=== PATIENT | female | born 1930 | race Caucasian/White ===

== ENCOUNTER 2018-02-07 10:01 | Inpatient (IN) | payer MEDICARE, BC ==
[~2018-02-07] VITALS: Ht 165.1 cm; Wt 49.0 kg
[~2018-02-07 10:01] MED LIST: ALBUTEROL2.5 MG/0.5 INH; BROVANA15 MCG/2 M INH; CALCITRIOL0.25 MCG PO; COLACE100 MG PO; COREG25 MG PO; COZAAR 50 MG TA50 M2 PO; DEMADEX20 MG PO; LASIX 40 MG TAB40 M2 PO; MEGESTROL40 MG/1 M1 PO; MIRALAX17 GM PO; NORVASC10 MG PO; PREDNISONE 10 M10 MG PO; SODIUM BICARB PO; SODIUM BICARBO650 M3 PO; SPRYCEL100 MG PO; TOPAMAX 25 MG T25 M1 PO; TOPROL XL25 MG PO; TOPROL XL50 MG PO; TRAMADOL 50 MG50 MG PO; TYLENOL EXTRA500 MG PO; TYLENOL PM EX-1 EACH PO; UNITHROID50 MCG PO; VALTREX1000 MG PO
[2018-02-07 10:06] VITALS: BP 195/59
[2018-02-07] MEDS ORDERED: LASIX 20 MG TAB20 MG PO (10:13)
[2018-02-07] MEDS ORDERED: FLECAINIDE ACET50 M1 PO (10:14)
[2018-02-07] MEDS ORDERED: ASPIR 8181 MG PO (10:14)
[2018-02-07 10:57] LABS: NUCLEATED RBCS 0 /100WBC; RDW-CV 14.6 % (10.5-14.5)
[2018-02-07 11:02] LABS: ABSOLUTE BASOPHILS 0.2 thou/uL (0.0-0.2); ABSOLUTE EOSINOPHILS 0.2 thou/uL (0.0-0.7); ABSOLUTE LYMPHOCYTES 1.4 thou/uL (0.8-5.3); ABSOLUTE MONOCYTES 0.6 thou/uL (0.0-1.2); ABSOLUTE NEUTROPHILS 8.8 thou/uL (1.6-8.1); BASOPHILS 1.3 %; EOSINOPHILS 2.2 %; HEMOGLOBIN 12.4 gm/dL (12.0-15.0); LYMPHOCYTES 12.7 %; MCH 30.5 pg (26.0-34.0); MCHC 32.5 g/dL (28.0-37.0); MCV 93.8 fL (80.0-100.0); MONOCYTES 5.7 %; PLATELET COUNT* 255 thou/uL (150-400); POLYS 78.1 %; RBC 4.05 mil/uL (4.20-5.00); WBC 11.3 thou/uL (4.0-11.0)
[2018-02-07 11:15] LABS: ANION GAP 14 mmol/L (7-16); BUN 25 mg/dL (7-18); CALCIUM 9.1 mg/dL (8.5-10.1); CHLORIDE 109 mmol/L (98-107); CO2 20 mmol/L (21-32); CREATININE 2.3 mg/dL (0.6-1.3); GLUCOSE 105 mg/dL (70-99); POTASSIUM 4.3 mmol/L (3.5-5.1); SODIUM 143 mmol/L (136-145)
[2018-02-07 11:24] LABS: ALBUMIN 3.6 g/dL (3.4-5.0); ALKALINE PHOSPHATASE 89 U/L (46-116); NT-PRO BRAIN NAT PEPTIDE 4413 pg/mL (<300); SGOT 18 U/L (15-37); SGPT 15 U/L (30-65); TOTAL BILIRUBIN 0.4 mg/dL (<0.1-1.0); TOTAL PROTEIN 7.8 g/dL (6.4-8.2); TROPONIN-I LEVEL <0.06 ng/mL (<0.06)
[2018-02-07 11:36] LABS: APTT 28.5 Seconds (25.0-31.3); INR 1.1; PROTIME 10.5 Seconds (9.20-11.50)
[2018-02-07 12:25] VITALS: BP 173/54
[2018-02-07 12:30] VITALS: BP 189/60
--- NOTE | 2018-02-07 14:04 | NUR ---
PT ORIENTED TO ROOM AND UNIT. REMAINS ON 4L NC. AWAITING DR. JACKSON TO ASSESS.
--- NOTE | 2018-02-07 15:13 | NUR ---
WHEN REVCIEVING REPORT ON PATIENT AROUND 1145 TODAY I WAS INFORMED BY SIGNAL INTELLIGENCE ANALYSTTRAN CHOWDHURY THAT PT HAD RECIEVED VQ SCAN TO R/O PE HOWEVER UPON FURTHER INVESTIGATION NUC MED TECH WAS NOT CALLED IN AND VQ SCAN WAS NOT COMPLETED. INSTRUCTED BY DR. EDWARDS TO CALL IN NUC MED TECH AND HAVE TEST COMPLETED STAT. PT REMAINS ON 4LNC.
[2018-02-07 16:00] VITALS: BP 174/56
--- NOTE | 2018-02-07 16:41 | NUR ---
PT OFF UNIT TO NUC MED.
--- NOTE | 2018-02-07 17:42 | NUR ---
PT RETURN TO UNIT.
[2018-02-07 18:55] LABS: HEMATOCRIT 37.3 % (37.0-47.0); HEMOGLOBIN 12.1 gm/dL (12.0-15.0); MCH 30.7 pg (26.0-34.0); MCHC 32.6 g/dL (28.0-37.0); MCV 94.1 fL (80.0-100.0); MPV 8.9 fl. (7.2-11.1); RBC 3.96 mil/uL (4.20-5.00); RDW-CV 14.5 % (10.5-14.5); WBC 12.6 thou/uL (4.0-11.0)
--- NOTE | 2018-02-07 18:56 | NUR ---
PT RESTING COMFORTABLY IN BED. VQ SCAN WAS NEGATIVE.
[2018-02-07 20:00] VITALS: BP 173/52
[2018-02-08] VITALS (7 sets, daily range): BP systolic 149–173; BP diastolic 51–105
--- NOTE | 2018-02-08 02:26 | NUR ---
PT ALERT ORIENTED. UP TO BSC WITH ONE PERSON ASSIST. TELMETRY SHOWS SR. O2 AT 4 LITERS NC. WILL CONTINUE TO MONITOR.
[2018-02-08 04:28] LABS: HEMOGLOBIN 11.2 gm/dL (12.0-15.0); MCH 30.8 pg (26.0-34.0); MCV 93.4 fL (80.0-100.0); MPV 9.2 fl. (7.2-11.1); RBC 3.64 mil/uL (4.20-5.00); RDW-CV 14.7 % (10.5-14.5); WBC 11.1 thou/uL (4.0-11.0)
[2018-02-08 04:34] LABS: CALCIUM 8.5 mg/dL (8.5-10.1); CREATININE 2.5 mg/dL (0.6-1.3); POTASSIUM 3.9 mmol/L (3.5-5.1)
--- NOTE | 2018-02-08 10:57 | NUR ---
PT OFF UNIT TO CT.
--- NOTE | 2018-02-08 11:52 | NUR ---
PT RETURN TO UNIT AT 1110
--- NOTE | 2018-02-08 12:03 | NUR ---
PT OFF UNIT TO U/S.
--- NOTE | 2018-02-08 13:22 | EKG ---
[place] [address] ELECTROCARDIOGRAM REPORT Name: ALFONSO WELLS Room: [address] ADM IN M.R.#: [id number] Admission: 02/07/18 Attend Phys: Demarcus Lentz, Discharge: Date of : [birth year] Report #: [id number] THIS REPORT FOR: //name// [facility] ED Test Date: 2018-02-07 Test Time: 10:21:31 Pat Name: ALFONSO WELLS Department: Room: [address] Gender: F Medical Equipment Sales: Julius MOON : 1930 Requested By: Demarcus Lentz Order Number: [id number] Sriram MD: Wilton Sigala Measurements Intervals [place] Rate: 69 P: 36 TN: 173 QRS: 45 QRSD: 90 T: 71 QT: 401 QTc: 430 Interpretive Statements Sinus rhythm Borderline low voltage, extremity leads Compared to ECG 04/02/2016 18:31:05 No significant changes Electronically Signed On 02-08-2018 13:22:00 CDT by Wilton Sigala [email or web address] <ELECTRONICALLY SIGNED> By: Wilton Sigala MD, [facility] 02/08/18 1322 1021 1021 Wilton Sigala MD, [facility] /EPI
--- NOTE | 2018-02-08 13:25 | EKG ---
[place] [address] ELECTROCARDIOGRAM REPORT Name: ALFONSO WELLS Room: [address] IN [facility].#: [id number] Admission: 02/07/18 Attend Phys: Demarcus Lentz, Discharge: Date of : [birth year] Report #: [id number] THIS REPORT FOR: //name// [facility] Test Date: 2018-02-07 Test Time: 16:16:15 Pat Name: ALFONSO WELLS Department: Room: Gender: F Public Safety Director: : 1930 Requested By: Kelley Cuba Order Number: [id number] MD: Wilton Sigala Measurements Intervals [place] Rate: 79 P: 50 SD: 173 QRS: 35 QRSD: 103 T: 65 QT: 399 QTc: 458 Interpretive Statements Sinus rhythm Borderline low voltage, extremity leads Nonspecific ST segment depression Compared to ECG 04/02/2016 18:31:05 No significant changes Electronically Signed On 02-08-2018 13:24:58 CDT by Wilton Sigala [email or web address] <ELECTRONICALLY SIGNED> By: Wilton Sigala MD, [facility] 02/08/18 1324 1616 15 Wliton Sigala MD, [facility] /EPI
[2018-02-08 18:10] LABS: URINE BILIRUBIN NEGATIVE (Negative); URINE BLOOD TRACE (Negative); URINE CLARITY CLEAR; URINE COLOR YELLOW; URINE GLUCOSE-RANDOM NEGATIVE (Negative); URINE KETONES NEGATIVE (Negative); URINE LEUKOCYTES-REFLEX NEGATIVE (Negative); URINE NITRITE-REFLEX NEGATIVE (Negative); URINE PROTEIN 2+ (Negative); URINE UROBILINOGEN 0.2 E.U./dl (0.2-1.0)
[2018-02-08 18:37] LABS: CRYSTALS None Seen /LPF (None Seen); FINE GRANULAR CASTS 0-3 Few /LPF (None Seen); HYALINE CASTS 0-3 Few /LPF (None Seen); MUCUS 0-3 Light strn/LPF (None Seen); SQUAMOUS 4-10 Moderate /LPF (0-3); URINE RBC 0-2 Rare /HPF (0-2); URINE WBC-REFLEX 0-5 Rare /HPF (0-5)
[2018-02-08 18:39] LABS: BACTERIA-REFLEX 1-9 Few /HPF (None Seen)
--- NOTE | 2018-02-08 19:19 | NUR ---
NATALEE REPORT GIVEN TO REECE MAYFIELD
--- NOTE | 2018-02-08 20:00 | NUR ---
RECIEVED REPORT AND ASSUMED CARE OF PATIENT AT 1930. NAIL FEEDER IN PLACE TRACING SR. ASSESSMENT AND VITALS COMPLETED CHARTED, VSS. PATIENT A&OX4. NO C/O PAIN OR DISCOMFORT. PATIENT ON 3L O2 NC WITH SATS >92%. NO RESPIRATORY DISTRESS NOTED. PATIENT RESTING COMFORTABLY WITH FAMILY AT BEDSIDE. GOAL IS TO MAINTAIN O2 SATURATION >92% ON 3L NC WITH NO RESPIRATORY DISTRESS. CALL LIGHT WITHIN REACH
[2018-02-09 03:53] VITALS: BP 163/58
--- NOTE | 2018-02-09 05:19 | NUR ---
PATIENT PROGRESSING TOWARDS GOALS: O2 SATURATION MAINTAINED >92% ON 3L O2 NC WITH NO RESPIRATORY DISTRESS NOTED. PATIENT HAS C/O HEADACHE WITH RELIEF FROM ACETAMINOPHEN. HOURLY ROUNDING OBSERVED. CALL LIGHT WITHIN REACH
[2018-02-09 05:41] LABS: HEMATOCRIT 34.6 % (37.0-47.0); HEMOGLOBIN 11.4 gm/dL (12.0-15.0); MCH 30.9 pg (26.0-34.0); MCHC 32.9 g/dL (28.0-37.0); MPV 9.1 fl. (7.2-11.1); RBC 3.69 mil/uL (4.20-5.00); WBC 11.8 thou/uL (4.0-11.0)
[2018-02-09 05:58] LABS: CREATININE 3.1 mg/dL (0.6-1.3); MAGNESIUM 2.5 mg/dL (1.8-2.4); POTASSIUM 4.5 mmol/L (3.5-5.1)
[2018-02-09 07:54] VITALS: BP 151/59
--- NOTE | 2018-02-09 07:54 | CON ---
[address] [address] CONSULTATION Name: ALFONSO WELLS Room: [address] IN .R.#: [id number] Admission: 02/07/18 Attend Phys: Demarcus Lentz, Discharge: Date of : [birth year] Report #: [id number] THIS REPORT FOR: //name// CC: Epi Lentz DATE OF SERVICE: 02/08/2018 CONSULT REQUESTED BY: Dr. Lentz. INDICATION FOR CONSULTATION: Shortness of breath. HISTORY OF PRESENT ILLNESS: This is an 87-year-old female. I have seen her previously in the office. I do not have my office notes available at this time; therefore, this description is from recollection from memory. I recall seeing her a couple of years ago. The patient has a history of chronic renal failure. The patient at one time was considered for hemodialysis, which she had declined. Eventually her creatinine stabilized to around 1.5-1.7. The patient is followed by Dr. Coyne. The patient has also had colon cancer and also in addition has had chronic myelogenous leukemia. The patient previously had pleural effusions bilaterally, which were transudative on thoracentesis. The patient at one point had bilateral PleurX catheters placed, which were ordered by Dr. Vieyra. Eventually the patient did not want these PleurX catheters as well and therefore I recall requesting them to be removed. It was not firmly established at that time as to whether the pleural effusions were related to her renal failure, her malignancy or chemotherapy received. Regardless, the patient did overall do well in addition to her renal function stabilizing, her pleural effusions were also slow to recur. I do not recall the patient coming back to our office to see us in the recent past. She does have a remote history of smoking as well. She states that she has not smoked for more than 30 years. She, in addition, has had paroxysmal atrial fibrillation. The patient has not been on long-term anticoagulation. The patient is also not on oxygen long-term. The patient is now admitted yesterday, presentation is with shortness of breath. The patient has had increasing shortness of breath for the past week. The patient was seen by primary care physician within the last week and was found to be in atrial fibrillation again. Note that the patient has had paroxysmal atrial fibrillation in the past as well. She initially reported that it was difficult for her to lay flat. She had some vague chest discomfort, but no chest pain. There is mild increase in cough. There is no sputum production. She does not have upper respiratory complaints. There is no swelling of lower extremities. There is no calf pain. There are no abdominal complaints. She does [place] [address] CONSULTATION Name: RUSSELLALFONSO Room: [address] IN .R.#: [id number] Admission: 02/07/18 Attend Phys: Demarcus Lentz, Discharge: Date of : [birth year] Report #: [id number] Upon arrival, the patient was treated with Lasix. She was also anticoagulated with Lovenox. In addition, she was started on Levaquin. At this time she reports improvement in her shortness of breath. She is only on 1 liter nasal cannula. She does not appear to be in any respiratory distress at this time. I performed a 12-point review of systems, the patient's review of systems is negative except as mentioned above. PAST MEDICAL HISTORY: Chronic renal failure, followed by Dr. Coyne, baseline creatinine in fact eventually improved to around 1.5-1.7; colon cancer, chronic myelogenous leukemia, previously followed by Dr. Vieyra; recurrent transudative pleural effusion, previous history of PleurX catheter placement, which have now been removed as mentioned above; paroxysmal atrial fibrillation, not on long-term anticoagulation. The last available echocardiogram is from 2014 and shows a left ventricular ejection fraction of 60-65%. The pulmonary artery systolic on this echo was elevated to 53. The patient has a previous history of recurrent DVTs according to Dr. Vieyra's notes, I do not have details available. As mentioned above, the patient was not known to be on anticoagulation prior to this admission. Acute pancreatitis, gastroesophageal reflux disease, bilateral cataracts, hysterectomy, colon surgery, appendectomy, cholecystectomy, tonsillectomy. SOCIAL HISTORY: The patient says that she used to smoke, but was never a heavy smoker, discontinued 30 or more years ago. I am unable to quantify exactly at this time. No known history of heavy alcohol use or illegal drug use. ALLERGIES: THE PATIENT REPORTS AN ALLERGY TO PENICILLIN AND SULFA DRUGS. CURRENT MEDICATIONS: List in [facility] reviewed. HOME MEDICATIONS: List also in [employer] reviewed. FAMILY HISTORY: There is no pertinent family history. PHYSICAL EXAMINATION: GENERAL: She is alert, awake and oriented, does not appear to be short of breath at rest. VITAL SIGNS: She has a pulse of 89 and a blood pressure of 158/70. She has been saturating in the mid 90s. Her oxygen is via nasal cannula. She is being titrated and she has ranged from 1-4 liters. Her respiratory rate was around 14-16 at the time of my examination. She has been afebrile, last temperature is 37.1. HEENT: Head is normocephalic and atraumatic. Pupils are equal and reactive. There is no throat erythema. NECK: Does not show raised JVP, asymmetry, mass or lymph nodes. CHEST: Symmetrical expansion on inspection and palpation. On auscultation, breath sounds are bilaterally equal. Breath sounds are significantly decreased [address] [address] CONSULTATION Name: ALFONSO WELLS Room: [address] IN [facility]#: [id number] Admission: 02/07/18 Attend Phys: Demarcus Lentz, Discharge: Date of : 04/27/[birth year] Report #: [id number] at bilateral lung bases. HEART: Irregular. There is a minimal systolic murmur. ABDOMEN: Soft and nontender. EXTREMITIES: Lower extremities show no edema and no calf tenderness. SKIN: Dry and intact. NEUROLOGICAL: Moves all extremities bilaterally equally and spontaneously with no focal deficit identified. LABORATORY DATA: The patient's chest x-ray is reviewed and compared with the patient's previous chest x-rays there is a recurrence of pleural effusions at bilateral lung bases. There are bilateral basilar infiltrates noted as well. I do not see any definite increase in pulmonary vascular congestion. The patient's chemistries do show a creatinine elevating to 2.5 today. Note that the patient's baseline creatinine is 1.5-1.7. Rest of the chemistries in [facility] reviewed. CBC in [facility] also reviewed. D-dimer was elevated to 0.88. ASSESSMENT AND PLAN: 1. Acute respiratory insufficiency/shortness of breath. The patient has had recurrence of previously known pleural effusions. There are also bilateral infiltrates present. These appear to be the etiology of the patient's acute respiratory insufficiency. Note that the patient's creatinine is elevated above her baseline. 2. Bilateral pleural effusions. See discussion above. At one point in the past the patient has had PleurX catheters. These pleural effusions had subsequently, however, not recurred. At this time, considering that the patient is in no respiratory distress and has a significant elevation in creatinine beyond her baseline, I decided to discontinue her diuretic. I will also discontinue her Lovenox for now and we will proceed with a CT chest without contrast. If significant pleural effusions are seen, then I would favor proceeding with thoracentesis. 3. Pulmonary infiltrates. Bilateral basilar pulmonary infiltrates are noted. The patient currently is on Levaquin 500 mg IV daily. I requested pharmacy to check the dose. Note that the patient is in acute on chronic renal failure. I will, however, be continuing with Levaquin. 4. Acute on chronic renal failure. The patient states that she strongly prefers that we consult Nephrology. Per the patient's request, I proceeded to consulting Nephrology. 5. Possible bronchospasm. The patient may have underlying chronic obstructive pulmonary disease. I do not have my office notes available at this time. For now, I did go ahead and start Solu-Medrol as well as nebulized bronchodilators pending review tomorrow morning. 6. Paroxysmal atrial fibrillation. The patient is on full dose Lovenox. Considering the thoracentesis is a consideration, I discontinued Lovenox for now. If thoracentesis is not performed or after the procedure is performed, if indicated anticoagulation could be restarted; however, recommend adjusting dose [address] [address] CONSULTATION Name: ALFONSO WELLS Room: [address] IN .R.#: [id number] Admission: 02/07/18 Attend Phys: Demarcus Lentz, Discharge: Date of : 04/27/[birth year] Report #: [id number] for renal function. 7. Past medical history of deep venous thrombosis. We will go ahead and repeat venous Dopplers as well. Note that the patient's V/Q scan is unremarkable. 8. Past medical history of chronic myelogenous leukemia. 9. Past medical history of colon cancer. Thanks for this consultation. <ELECTRONICALLY SIGNED> By: Hanane Elmore MD 02/09/18 0754 1106 [id number] Urban MD /alyse
--- NOTE | 2018-02-09 11:50 | NUR ---
MET WITH PT TO DISCUSS HOME SITUATION/DC PLANING. PT LIVES ALONE. STATES HER DTR/FELICIANO STAYS WITH HER SOME. FELICIANO HAS CANCER AND PT STATES THEY SUPPORT EACH OTHER. PT IS FAIRLY INDEPENDENT. IS ABLE TO COOK, CLEAN AND DO OWN ADLS. SHE HAS WALKER BUT DOESN'T USE IT. ALSO SHOWER BENCH AND NEBULIZER. GRAB BARS ON HER STAIRS. PT HAS HAD HH IN THE PAST, NOT BEEN TO SNF. DENIES ANY CURRENT DC NEEDS. PT PLANS TO RETURN [facility]. SHE DOESN'T WEAR HOME O2. WILL FOLLOW
[2018-02-09 11:57] VITALS: BP 150/46
--- NOTE | 2018-02-09 12:44 | NUR ---
ASSESSMENT COMPLETED REFER TO COMPUTER CHARTING. SHIRT FINISHER TRACKING SR. RESTING IN BED REPORTING NO PAIN, NAUSEA OR SHORTNESS OF BREATH. BED IN LOW AND LOCKED POSITION. CALL LIGHT WITHIN REACH. IV SALINE LOCKED. ON O2 AT 3 LITERS VIA NASAL CANNULA. WILL CONTINUE TO MONITOR THIS SHIFT.
--- NOTE | 2018-02-09 15:12 | 2DMMODE ---
[place] [address] 2 D/M-MODE ECHOCARDIOGRAM Name: ALFONSO WELLS Room: [address] IN .R.#: [id number] Admission: 02/07/18 Attend Phys: Demarcus Aleman Discharge: Date of : [birth year]27/[birth year] Date of Service: 02/09/18 1511 Report #: [id number] THIS REPORT FOR: //name// APPROVED REPORT Study performed: 02/09/2018 10:38:05 EXAM: Comprehensive 2D, Doppler, and color-flow Echocardiogram Patient Location: Bedside BSA: 1.57 HR: 83 bpm BP: 151/59 mmHg Other Information Study Quality: Good Indications Congestive Heart Failure Pleural Effusion 2D Dimensions LVEF(%): 70.01 (>50%) IVSd: 10.85 (7-11mm) LVOT Diam: 22.53 (18-24mm) LVDd: 42.04 mm PWd: 8.67 (7-11mm) Ascending Ao: 28.74 (22-36mm) LVDs: 25.57 (25-40mm) Aortic Root: 26.76 mm Marie's LVEF: 70.01 % Volumes Left Atrial Volume (Systole) LA ESV Index: 42.10 mL/m2 Aortic Valve AoV Peak Shaggy.: 1.18 m/s AO Peak Gr.: 5.56 mmHg LVOT Max P.00 mmHg AO Mean Gr.: 3.80 mmHg LVOT Mean P.09 mmHg LVOT Max V: 0.71 m/s AO V2 VTI: 27.68 cm LVOT Mean V: 0.49 m/s ALEXSANDRA (VTI): 2.71 cm2 LVOT V1 VTI: 18.82 cm Mitral Valve E/A Ratio: 1.44 MV Decel. Time: 161.61 [place] [address] 2 D/M-MODE ECHOCARDIOGRAM Name: ALFONSO WELLS Room: [address] IN [facility].#: [id number] Admission: 02/07/18 Attend Phys: Demarcus Aleman Discharge: Date of : 04/27/[birth year] Date of Service: 02/09/18 1511 Report #: [id number] MV E Max Shaggy.: 1.22 m/s MV PHT: 46.87 ms MVA (PHT): 4.69 cm2 TDI E/Lateral E': 12.20 E/Medial E': 12.20 Medial E' Shaggy.: 0.10 m/s Lateral E' Shaggy.: 0.10 m/s Pulmonary Valve PV Peak Shaggy.: 0.70 m/s PV Peak Gr.: 1.93 mmHg Tricuspid Valve RAP Estimate: 10.00 mmHg TR Peak Gr.: 45.96 mmHg RVSP: 55.96 mmHg PA Pressure: 55.96 mmHg Left Ventricle The left ventricle is normal size. There is normal LV segmental wall motion. There is normal left ventricular wall thickness. Left ventricular systolic function is normal. The left ventricular ejection fraction is within the normal range. LVEF is 60-65%. The left ventricular diastolic function is normal. Right Ventricle The right ventricle is normal size. The right ventricular systolic function is normal. Atria Left atrium is moderately dilated. The right atrium size is normal. Aortic Valve Aortic valve is calcified. Mild aortic regurgitation. There is no aortic valvular stenosis. Mitral Valve There is mitral annular calcification. Mitral valve leaflets are calcified. Mild to moderate mitral regurgitation. No evidence of mitral valve stenosis. Tricuspid Valve The tricuspid valve is normal in structure. Trace tricuspid regurgitation. estimated pa pressure 50 [place] [address] 2 D/M-MODE ECHOCARDIOGRAM Name: ALFONSO WELLS Room: [address]#: [id number] Admission: 02/07/18 Attend Phys: Demarcus Aleman Discharge: Date of : 04/27/[birth year] Date of Service: 02/09/18 1511 Report #: [id number] The pulmonary valve is normal in structure. Trace pulmonic regurgitation. Great Vessels The aortic root is normal in size. The IVC is dilated. Pericardium There is no pericardial effusion. Pleural effusion. <Conclusion> Left ventricular systolic function is normal. The left ventricular ejection fraction is within the normal range. Left atrium is moderately dilated. Aortic valve is calcified. Mild aortic regurgitation. Mild to moderate mitral regurgitation. Trace tricuspid regurgitation. estimated pa pressure 50 mm Hg Pleural effusion. <ELECTRONICALLY SIGNED> By: Nickolas Waters MD, FACC 02/09/18 151 10 10 Nickolas Waters MD, FACC /INF
[2018-02-09 16:00] VITALS: BP 162/54
[2018-02-09 20:00] VITALS: BP 166/64
--- NOTE | 2018-02-09 22:25 | NUR ---
RECIEVED REPORT AND ASSUMED CARE OF PATIENT AT 1930. DEMOLITION EXPERT IN PLACE TRACING SR. ASSESSMENT AND VITALS COMPLETED CHARTED, VSS. PATIENT A&OX4. PATIENT HAD C/O SLIGHT PAIN IN HEAD AND EXPRESSING CONCERN ABOUT NOT BEING ABLE TO SLEEP. ORDERS RECIEVED AND ADMINISTERED PER DEC. PATIENT RESTING COMFORTABLY AT THIS TIME. GOAL IS FOR O2 SATURATION TO REMAIN WNL ON 3L NC AND TITRATE TO KEEP >92%. CALL LIGHT WITHIN REACH
[2018-02-09 23:41] VITALS: BP 149/51
[2018-02-10 03:42] VITALS: BP 157/55
--- NOTE | 2018-02-10 04:09 | NUR ---
PATIENT PARTIALLY PROGRESSING TOWARDS GOALS: O2 UNABLE TO BE TITRATED DOWN THIS SHIFT. PATIENT REMAINS ON 3L O2 WITH SATURATION WNL. PATIENT HAS RESTED COMFORTABLY THIS SHIFT WITH NO FURTHER C/O PAIN OR DISCOMFORT. HOURLY ROUNDING OBSERVED. CALL LIGHT WITHIN REACH
[2018-02-10 04:43] LABS: HEMATOCRIT 33.6 % (37.0-47.0); HEMOGLOBIN 10.9 gm/dL (12.0-15.0); MCH 30.5 pg (26.0-34.0); MCHC 32.3 g/dL (28.0-37.0); MCV 94.3 fL (80.0-100.0); RBC 3.56 mil/uL (4.20-5.00); RDW-CV 15.2 % (10.5-14.5); WBC 20.5 thou/uL (4.0-11.0)
[2018-02-10 04:58] LABS: ALBUMIN 3.1 g/dL (3.4-5.0); CALCIUM 8.6 mg/dL (8.5-10.1); CREATININE 3.4 mg/dL (0.6-1.3); MAGNESIUM 2.5 mg/dL (1.8-2.4); POTASSIUM 4.2 mmol/L (3.5-5.1); TOTAL BILIRUBIN 0.3 mg/dL (<0.1-1.0); TOTAL PROTEIN 6.9 g/dL (6.4-8.2)
[2018-02-10 08:30] VITALS: BP 156/68
--- NOTE | 2018-02-10 11:46 | NUR ---
ASSUMED CARE OF PT AT 0730. PT RESTING IN BED WAITING FOR BREAKFAST. PT A&0X4, VERY PLEASANT. PT DENIES ANY PAIN OR SHORTNESS OF BREATH AT THIS TIME. PT TRACING SR ON THE CORRUGATED SHEET MATERIAL SHEETER. ON 3L NC SAT 93%. PT DOES NOT WEAR ANY OXYGEN AT HOME. PT HAS PRODUCTIVE COUGH WITH CLEAR SPUTUM PER PT. PT IS ON STRICT I/O. PT UP SBA TO BATHROOM. CR CONTINUES TO RISE- PT DOES NOT WANT TO DO ANY AGGRESSIVE MEASURES, INCLUDING DIALYSIS. PT GOAL FOR TODAY IS TO INCREASE ACTIVITY, MONITOR WBC, TAPER STEROIDS, TITRATE OXYGEN POSSIBLE. AM ASSESSMENT CHARTED. MEDICATIONS PER DEC. PT REPOSITIONS SELF. HOURLY ROUNDING OBSERVED. BED IN LOW POSITION. CALL LIGHT WITHIN REACH. WILL CONTINUE PLAN OF CARE.
[2018-02-10 12:41] VITALS: BP 136/46
--- NOTE | 2018-02-10 14:05 | NUR ---
PT UP IN CHAIR, STATES DOING BETTER TODAY. PT DENIES ANY CONCERNS TODAY. STILL PLANS TO RETURN HOME AT MD. WILL FOLLOW
--- NOTE | 2018-02-10 17:06 | NUR ---
NO ACUTE CHANGES THROUGHOUT SHIFT. REFER TO CHARTING. CR CONTINUES TO RISE-3.4 TODAY. NEPHROLOGY HERE TO SEE PT. ORDERS RECEIVED FOR ONE TIME DOSE OF SMALL AMOUNT OF FLUID-250 ML INFUSED OVER 5 HOURS AT 50 ML/HR. PT OXYGEN TITRATED TO 2L NC SAT UPPER 90'S. DENIES ANY SHORTNESS OF BREATH AT REST. PT UP WITH 1 SBA TO BATHROOM. VISITORS AT BEDSIDE THIS AFTERNOON. PT. PT CONTINUES TO TRACE SR ON THE OPTOELECTRONIC TECHNICIAN. PT WEARS SCD'S WHILE IN BED. PT HAD BOWEL MOVEMENT TODAY. STRICT I/O IN PLACE. PT TO HAVE REPEAT CXR IN AM 5/2, POSSIBLE TAP IF INCREASE IN EFFUSIONS. PT DENIES ANY PAIN THROUGHOUT SHIFT. MEDICATIONS PER DEC. PT REPOSITIONS SELF. HOURLY ROUNDING OBSERVED. BED IN LOW POSITION. BED ALARM IN PLACE. FALL PRECAUTIONS IN PLACE. CALL LIGHT WITHIN REACH. WILL CONTINUE PLAN OF CARE.
[2018-02-10 17:12] VITALS: BP 148/45
[2018-02-10 20:00] VITALS: BP 159/50
[2018-02-10 23:54] VITALS: BP 151/37
--- NOTE | 2018-02-11 03:12 | NUR ---
PATIENT RESTED IN BED. NO ACUTE CHANGES, PATIENT DID NOT SHOW SIGNS OF DISTRESS. PATIENT DID NOT COMPLAIN OF SOB. PATIENT TO RECIEVE CHEST X-RAY LATER TODAY. FALL PRECAUTIONS IN PLACE, CALL LIGHT WITHIN REACH, HOURLY ROUNDING OBSERVED.
[2018-02-11 04:00] VITALS: BP 151/55
[2018-02-11 04:50] LABS: HEMATOCRIT 32.7 % (37.0-47.0); HEMOGLOBIN 10.8 gm/dL (12.0-15.0); MPV 9.4 fl. (7.2-11.1); RBC 3.48 mil/uL (4.20-5.00); WBC 12.9 thou/uL (4.0-11.0)
[2018-02-11 05:07] LABS: CALCIUM 8.5 mg/dL (8.5-10.1); CREATININE 3.4 mg/dL (0.6-1.3); PHOSPHORUS* 5.2 mg/dL (2.5-4.9); POTASSIUM 4.6 mmol/L (3.5-5.1)
[2018-02-11 08:00] VITALS: BP 160/49
[2018-02-11 11:22] VITALS: BP 151/42
--- NOTE | 2018-02-11 11:37 | NUR ---
CONTINUE TO FOLLOW, MET WITH PT AND DTR FELICIANO. ALSO DISCUSSED WITH DR SMITH, HE STATED HE DISCUSSED POSSIBLE HOSPICE WITH PT YESTERDAY AN OPTION SHE DOESN'T WANT DIALYSIS OR VENT PER THEIR DISCUSSION. I DID CONFIRM THAT WITH HER TODAY. TALKED WITH PT ABOUT OPTIONS OF PALLIATIVE CARE AND HOSPICE. SHE WOULD LIKE TO CONSIDER OPTONS. GAVE HER PAMPHLET INFO ON PALLIATIVE CARE. WILL FOLLOW
--- NOTE | 2018-02-11 14:22 | NUR ---
ASSUMED PT CARE AT 0730, FULL ASSESMENT DONE CHARTED. PT A/O X4, DENIES PAIN, WANTS TO GET BETTER AND GO HOME. PTS VSS, SR/1ST AVB ON THE MONITOR. FALL PRECATUIONS IN PLACE. PT USING CALL LIGHT APPROPRIALTY. WILL CONTINUE WITH PLAN OF CARE.
[2018-02-11 15:19] VITALS: BP 136/37
--- NOTE | 2018-02-11 16:17 | CON ---
[address] [address] CONSULTATION Name: ALFONSO WELLS Room: [address] IN M.R.#: [id number] Admission: 02/07/18 Attend Phys: Demarcus Lentz, Discharge: Date of : [birth year] Report #: [id number] THIS REPORT FOR: //name// CC: Epi Lentz CONSULTING PHYSICIAN: Demarcus Lentz MD. REASON FOR CONSULTATION: Acute kidney injury. HISTORY OF PRESENT ILLNESS: The patient is an 87-year-old female who was admitted 02/07/2018 with shortness of breath, which had been ongoing for about a week. She has underlying stage 4 chronic kidney disease followed by Dr. Coyne as an outpatient, last seen in our office in December. Her breathing is much better. She did receive a dose of IV Lasix; however, her creatinine jumped from 2.3 to 2.5 to now 3.1 prompting Nephrology consult. She is suspected of having an exacerbation of diastolic heart failure. Pulmonology is following and the patient also had an echocardiogram done during her hospital stay here. She is making urine. She has no flank pain. She has no other complaints. REVIEW OF SYSTEMS: Constitutional, psych, heme, eyes, ENT, respiratory, cardiac, GI, , endocrine, all negative except as documented above. PAST MEDICAL HISTORY: Chronic kidney disease stage 4, hypertension, history of colon cancer, secondary hyperparathyroidism, history of CML. FAMILY HISTORY: Not pertinent in this 87-year-old female. SOCIAL HISTORY: Quit smoking over 30 years ago. CURRENT MEDICATIONS: Reviewed. PHYSICAL EXAMINATION: VITAL SIGNS: Blood pressure 150/46, pulse 71, temperature 36.6. GENERAL: No acute distress. EYES: Extraocular movements intact. EARS: Externally normal. CARDIOVASCULAR: Regular rate. LUNGS: Diminished breath sounds. ABDOMEN: Soft. LYMPHATICS: No significant peripheral pitting edema. PSYCHIATRIC: Awake and alert. LABORATORY DATA: White cell count 11.8, hemoglobin 11.4, platelets 236. Sodium 140, potassium 4.5, chloride 105, bicarbonate 18, BUN 36, creatinine 3.1, glucose 135, calcium 9, magnesium 2.5. [place] [address] CONSULTATION Name: STEPHEN WELLSKT [place] Room: [address]#: [id number] Admission: 02/07/18 Attend Phys: Demarcus Lentz, Discharge: Date of : 04/27/[birth year] Report #: [id number] ASSESSMENT AND PLAN: 1. Acute kidney injury, possibly related to a diuretic, which was given in the setting of diastolic heart failure. 2. Chronic kidney disease, stage 4. Baseline creatinine runs in the 2.3-2.4 range and when seen on 12/15/2017, outpatient creatinine was 2.3. 3. Metabolic acidosis. 4. Diastolic heart failure with an ejection fraction of 60%-65% and a pulmonary artery pressure of 50. 5. Proteinuria with urine protein to creatinine ratio of 17:52. 6. History of atrial fibrillation with rapid ventricular response. 7. Chronic left hydronephrosis, which has been present since at least 2014, the patient is asymptomatic. PLAN: As the patient has a good urine output, Lasix was discontinued yesterday. She is chronically on torsemide 20 mg every other day at home. She does not wish to have dialysis at present. We will not administer any IV fluids. Diuretics have been stopped. I asked her to orally hydrate with a goal intake of about 40-50 ounces per day and hopefully, creatinine will plateau and stabilize. She does follow with Dr. Coyne as an outpatient. She has some mild metabolic acidosis. We will not start sodium bicarbonate at present time, so as not to exacerbate her heart failure. We will follow closely and check labs again in the a.m. Thank you for requesting my opinion in the care and management of this patient. <ELECTRONICALLY SIGNED> By: Cary Frances MD 02/11/18 1617 [id number] Frances MD /nt
[2018-02-11 20:00] VITALS: BP 161/50
[2018-02-11 23:48] VITALS: BP 169/48
[2018-02-12 04:26] VITALS: BP 162/52
[2018-02-12 04:46] LABS: HEMATOCRIT 31.9 % (37.0-47.0); HEMOGLOBIN 10.4 gm/dL (12.0-15.0); MCHC 32.7 g/dL (28.0-37.0); MCV 94.8 fL (80.0-100.0); MPV 8.7 fl. (7.2-11.1); RBC 3.36 mil/uL (4.20-5.00); RDW-CV 15.3 % (10.5-14.5); WBC 11.6 thou/uL (4.0-11.0)
--- NOTE | 2018-02-12 05:41 | NUR ---
PATIENT RESTED IN BED. PATIENT DID NOT SHOW SIGNS OF DISTRESS. PATIENT DID NOT COMPLAIN OF SOB. PATIENT BLOOD PRESSURE WAS ELEVATED, DOCTOR LADY NOTIFIED, NO NEW ORDERS. FALL PRECAUTIONS IN PLACE, BED ALARM ON, CALL LIGHT WITHIN REACH, HOURLY ROUNDING OBSERVED.
[2018-02-12 08:30] VITALS: BP 162/50
--- NOTE | 2018-02-12 10:05 | NUR ---
VSS. ASSUMED CARE IN AM. SR C 1ST DEGREE HEART BLOCK. NO PAIN. PT UP TO BEDSIDE COMODE AND CHAIR. PT ATE ADEQUATE AMOUNTS OF BREAKFAST. DAUGHTER AND GRANDAUGHTER IN ROOM. IV SALINE LOCKED LEFT FOREARM, BRUISING PRESENT ONLY. PT WOULD LIKE TO DISCHARGE TODAY. PT GOAL TO PERFORM ADLS WITHOUT DEBILITATING SYMPTOMS OF SOA, AND MAINTAIN FUNCTIONAL LEVEL OF MOBILITY. PT LEFT WITH NECESSARY ITEMS IN REACH.
[2018-02-12] MEDS ORDERED: CATAPRES-TTS 11 EACH TRANSDERM (11:55)
[2018-02-12 11:56] VITALS: BP 144/72
[2018-02-12] MEDS ORDERED: PREDNISONE 10 M10 MG PO (12:45)
--- NOTE | 2018-02-12 12:59 | NUR ---
SW spoke with pt about dc planning and pt going home today with HH services to follow. Pt preference for [facility]. [facility] called and spoke with Emma/teresa at [facility] phone number [phone] and received acceptance of referral; [facility] faxed referral and orders to [phone]. Pt has nebulizer and rolling walker at home. Pt did not need oxygen at home at this time. No other dc needs or concerns expressed. Pt dtr to provide pt ride home.
--- NOTE | 2018-02-12 16:00 | NUR ---
ASSUMED PT CARE AT 0730, FULL ASSESEMENT DONE, THIS RN AGREES WITH THE CHARTING AND NOTE OF JENNIFER POLISHER IMPLANT. PT DENIES PAIN, VSS, SR ON THE MONITOR. PT HOPING TO GO HOME TODAY. DISCHARGE ORDERS RECIEVED, [facility]CR[facility] CALLED TO PHARMACY, PT AND DTR EDUCATED ON NEW MEDS AND FOLLOW UP APPOINTMENTS. THEY VERBALIZED UNDERSTANDING. PT LEFT UNIT AT APPROX 1430 TO HOME WITH DTR.
== END 2018-02-12 14:53 | disposition home health service (06) | DRG 682 ==
LOC: M.ERS 10:01 → M.2W 11:24 → M.TBA-ER 11:24 → M.2W 12:44
PROVIDERS: Internal Medicine; Internal Medicine Nephrology; Personal Emergency Response Attendant; ADMIT Family Medicine
DX: N17.9 Acute kidney failure, unspecified (principal); I50.33 Acute on chronic diastolic (congestive) heart failure; J96.01 Acute respiratory failure with hypoxia; R65.11 Systemic inflammatory response syndrome (SIRS) of non-infectious origin with acute organ dysfunction; C92.10 Chronic myeloid leukemia, BCR/ABL-positive, not having achieved remission; E87.2 Acidosis; I13.2 Hypertensive heart and chronic kidney disease with heart failure and with stage 5 chronic kidney disease, or end stage renal disease; N18.5 Chronic kidney disease, stage 5; I48.0 Paroxysmal atrial fibrillation; E21.3 Hyperparathyroidism, unspecified; K21.9 Gastro-esophageal reflux disease without esophagitis; J20.9 Acute bronchitis, unspecified; J45.909 Unspecified asthma, uncomplicated; Z90.710 Acquired absence of both cervix and uterus; Z85.038 Personal history of other malignant neoplasm of large intestine; Z98.42 Cataract extraction status, left eye; Z98.41 Cataract extraction status, right eye; Z79.82 Long term (current) use of aspirin; Z79.899 Other long term (current) drug therapy; Z88.0 Allergy status to penicillin; Z88.2 Allergy status to sulfonamides; Z90.49 Acquired absence of other specified parts of digestive tract; Z90.89 Acquired absence of other organs; Z86.718 Personal history of other venous thrombosis and embolism; Z87.891 Personal history of nicotine dependence; Z82.49 Family history of ischemic heart disease and other diseases of the circulatory system